=== PATIENT | female | born 1935 | race Caucasian/White ===

== ENCOUNTER → 2016-06-21 | Outpatient (CLI) | payer MEDICARE | END | disposition home or self-care (01) | LOC: PCVCCLINIC 13:58 | PROVIDERS: ATTEND Internal Medicine Cardiovascular Disease | DX: I48.91 Unspecified atrial fibrillation (principal); E78.5 Hyperlipidemia, unspecified; I10 Essential (primary) hypertension; Z95.0 Presence of cardiac pacemaker | CPT/HCPCS: 80061; 93005; G0463 ==

== ENCOUNTER → 2016-06-23 | Outpatient (CLI) | payer MEDICARE | END | disposition home or self-care (01) | LOC: PCVCCLINIC 13:00 | PROVIDERS: ATTEND Internal Medicine Cardiovascular Disease | DX: I49.5 Sick sinus syndrome (principal) | CPT/HCPCS: 93280 ==

== ENCOUNTER → 2017-01-05 | Outpatient (CLI) | payer MEDICARE ==
--- NOTE | 2017-01-05 14:00 | PCVCIMAG ---
APPROVED REPORT Study performed: 01/05/2017 12:49:35 EXAM: Comprehensive 2D, Doppler, and color-flow Echocardiogram Patient Location: Echo lab Status: routine BSA: 1.85 HR: 73 bpmBP: 112/80 mmHg Rhythm: NSR Other Information Study Quality: Adequate Risk Factors: Cardiac Risk Factors: HTN, Hyperlipidemia, Afib, Pacemaker Indications Atrial Fibrillation Hypertension/HDD Hyperlipidemia. Pacemaker 2D Dimensions IVSd: 9.85 (7-11mm)LVOT Diam: 20.48 (18-24mm) LVDd: 39.05 mm LVPWs: 29.49 mm PWd: 9.03 (7-11mm)Ascending Ao: 30.07 (22-36mm) LVDs: 18.34 (25-40mm) Left Atrium: 41.82 (27-40mm) LV Single Plane 4CH: 63.48 % LV Single Plane 2CH: 51.23 %Brito's LVEF: 57.35 % Biplane EF: 58.6 % Volumes Left Atrial Volume (Systole) Single Plane 4CH: 43.10 mLSingle Plane 2CH: 28.99 mL LA ESV Index: 22.00 mL/m2 Aortic Valve AoV Peak Bry.: 1.59 m/s AO Peak Gr.: 10.14 mmHgLVOT Max P.65 mmHg LVOT Max V: 1.08 m/s EVE Vmax: 2.23 cm2 Mitral Valve E/A Ratio: 0.9 MV Decel. Time: 337.54 ms MV E Max Bry.: 0.66 m/s MV A Bry.: 0.77 m/s IVRT: 96.89 ms TDI E/Lateral E': 9.43E/Medial E': 8.25 Medial E' Bry.: 0.08 m/s Lateral E' Bry.: 0.07 m/s Pulmonary Valve PV Peak Gr.: 2.32 mmHg Pulmonary Vein P Vein S: 0.54 m/sP Vein A: 0.28 m/s P Vein D: 0.44 m/sP Vein A Dur.: 65.7 msec P Vein S/D Ratio: 1.23 Tricuspid Valve TR Peak Bry.: 2.77 m/s TR Peak Gr.: 30.77 mmHg Left Ventricle The left ventricle is normal size. There is normal LV segmental wall motion. There is normal left ventricular wall thickness. Left ventricular systolic function is normal. The left ventricular ejection fraction is within the normal range. LVEF is 60-65%. The left ventricular diastolic function is normal. Right Ventricle Pacemaker wire noted. The right ventricular systolic function is normal. Atria The left atrium size is normal. Pacemaker lead is present in the right atrium. Aortic Valve The aortic valve is normal in structure. No aortic regurgitation is present. There is no aortic valvular stenosis. Mitral Valve The mitral valve is normal in structure. Mild mitral annular calcification,. There is no mitral valve regurgitation noted. No evidence of mitral valve stenosis. Tricuspid Valve The tricuspid valve is normal in structure. Trace tricuspid regurgitation. Pulmonary artery pressure is 38mmhg. Pulmonic Valve The pulmonary valve is normal in structure. There is no pulmonic valvular regurgitation. Great Vessels The aortic root is normal in size. IVC is normal in size and collapses with >50% inspiration Pericardium There is no pericardial effusion. <Conclusion> The left ventricle is normal size. There is normal left ventricular wall thickness. LVEF is 60-65%. The left ventricular diastolic function is normal. Pacemaker wire noted. The right ventricular systolic function is normal. The left atrium size is normal. Pacemaker lead is present in the right atrium. The aortic valve is normal in structure. There is no mitral valve regurgitation noted. Trace tricuspid regurgitation. Pulmonary artery pressure is 38mmhg. There is no pericardial effusion.
== END | disposition home or self-care (01) ==
LOC: PCVCIMAG 12:16
PROVIDERS: ATTEND Internal Medicine Cardiovascular Disease
DX: I07.1 Rheumatic tricuspid insufficiency (principal); I48.91 Unspecified atrial fibrillation; I49.5 Sick sinus syndrome; E78.5 Hyperlipidemia, unspecified; I10 Essential (primary) hypertension; M81.0 Age-related osteoporosis without current pathological fracture; Z95.0 Presence of cardiac pacemaker; Z90.12 Acquired absence of left breast and nipple; Z79.899 Other long term (current) drug therapy; Z87.891 Personal history of nicotine dependence; Z88.0 Allergy status to penicillin; Z88.5 Allergy status to narcotic agent
CPT/HCPCS: 80061; 93280; 93306; G0463

== ENCOUNTER → 2017-07-26 | Outpatient (CLI) | payer MEDICARE | END | disposition home or self-care (01) | LOC: PCVCCLINIC 10:59 | DX: I48.91 Unspecified atrial fibrillation (principal); I49.5 Sick sinus syndrome; I10 Essential (primary) hypertension; E78.00 Pure hypercholesterolemia, unspecified; R19.7 Diarrhea, unspecified; Z90.49 Acquired absence of other specified parts of digestive tract; Z95.0 Presence of cardiac pacemaker; Z87.891 Personal history of nicotine dependence; Z79.899 Other long term (current) drug therapy | CPT/HCPCS: 80061; 93280; G0463 ==

== ENCOUNTER → 2017-10-25 | Outpatient (CLI) | payer MEDICARE | END | disposition home or self-care (01) | LOC: PCVCCLINIC 11:04 | PROVIDERS: ATTEND Internal Medicine Cardiovascular Disease | DX: I48.91 Unspecified atrial fibrillation (principal); I10 Essential (primary) hypertension; E78.5 Hyperlipidemia, unspecified; M81.0 Age-related osteoporosis without current pathological fracture; Z95.0 Presence of cardiac pacemaker; Z87.891 Personal history of nicotine dependence; Z79.899 Other long term (current) drug therapy | CPT/HCPCS: 80061; 93280; G0463 ==

== ENCOUNTER → 2018-02-07 | Outpatient (CLI) | payer MEDICARE | END | disposition home or self-care (01) | LOC: PCVCCLINIC 13:05 | PROVIDERS: ATTEND Internal Medicine Cardiovascular Disease | DX: I48.91 Unspecified atrial fibrillation (principal); I49.5 Sick sinus syndrome; E78.00 Pure hypercholesterolemia, unspecified; I10 Essential (primary) hypertension; Z95.0 Presence of cardiac pacemaker; Z87.891 Personal history of nicotine dependence; Z79.899 Other long term (current) drug therapy | CPT/HCPCS: 93280; G0463 ==

== ENCOUNTER → 2018-08-22 | Outpatient (CLI) | payer MEDICARE ==
--- NOTE | 2018-08-22 17:07 | PCVCIMAG ---
APPROVED REPORT Study performed: 08/22/2018 13:06:03 EXAM: Comprehensive 2D, Doppler, and color-flow Echocardiogram Patient Location: Echo lab Room #: 2Status: routine BSA: 1.89 HR: 61 bpmBP: 118/62 mmHg Rhythm: NSR Other Information Study Quality: Fair Indications Atrial Fibrillation Pacemaker Hypertension/HDD Hx SSS 2D Dimensions IVSd: 8.49 (7-11mm)LVOT Diam: 19.65 (18-24mm) LVDd: 52.74 mm PWd: 10.13 (7-11mm)Ascending Ao: 32.72 (22-36mm) LVDs: 32.66 (25-40mm) Left Atrium: 41.86 (27-40mm) Aortic Root: 22.34 mm LV Single Plane 4CH: 55.87 % LV Single Plane 2CH: 63.37 % Biplane EF: 59.2 % Volumes Left Atrial Volume (Systole) Single Plane 4CH: 57.89 mLSingle Plane 2CH: 39.93 mL Biplane LA Volume: 50.00 mLLA ESV Index: 27.00 mL/m2 Aortic Valve AoV Peak Bry.: 1.42 m/s AO Peak Gr.: 8.09 mmHgLVOT Max P.34 mmHg LVOT Max V: 0.89 m/s EVE Vmax: 1.89 cm2 Mitral Valve E/A Ratio: 1.3 MV Decel. Time: 203.45 ms MV E Max Bry.: 0.74 m/s MV A Bry.: 0.59 m/s TDI E/Lateral E': 12.33E/Medial E': 8.22 Medial E' Bry.: 0.09 m/s Lateral E' Bry.: 0.06 m/s Pulmonary Valve PV Peak Bry.: 0.91 m/sPV Peak Gr.: 3.29 mmHg Pulmonary Vein P Vein S: 0.56 m/sP Vein A: 0.19 m/s P Vein D: 0.48 m/sP Vein A Dur.: 79.6 msec P Vein S/D Ratio: 1.17 Tricuspid Valve TR Peak Bry.: 2.44 m/s TR Peak Gr.: 23.77 mmHg TV Vmax: 0.54 m/sPA Pressure: 34.00 mmHg Left Ventricle The left ventricle is normal size. There is normal LV segmental wall motion. There is normal left ventricular wall thickness. Left ventricular systolic function is normal. The left ventricular ejection fraction is within the normal range. LVEF is 55-60%. The left ventricular diastolic function is normal. Right Ventricle The right ventricle is normal size. The right ventricular systolic function is normal. Atria The left atrium size is normal. Pacemaker lead is present in the right atrium. Aortic Valve Aortic valve is trileaflet. Aortic valve leaflets are minimally thickened. No aortic regurgitation is present. There is no aortic valvular stenosis. Mitral Valve The mitral valve is normal in structure. Trace mitral regurgitation. No evidence of mitral valve stenosis. Tricuspid Valve The tricuspid valve is normal in structure. Mild tricuspid regurgitation with a PA pressure of 34 mmHg. Mild pulmonary hypertension. Pulmonic Valve The pulmonary valve is normal in structure. There is no pulmonic valvular regurgitation. Great Vessels The aortic root is normal in size. The ascending aorta is normal in size. Aortic arch is normal in caliber. IVC is normal in size and collapses >50% with inspiration. Pericardium There is no pericardial effusion. There is no pleural effusion. <Conclusion> The left ventricle is normal size. LVEF is 55-60%. The left ventricular diastolic function is normal. The right ventricle is normal size. The left atrium size is normal. Pacemaker lead is present in the right atrium. Aortic valve is trileaflet. Aortic valve leaflets are minimally thickened. There is no aortic valvular stenosis. Trace mitral regurgitation. Mild tricuspid regurgitation with a PA pressure of 34 mmHg. Mild pulmonary hypertension. The aortic root is normal in size. There is no pericardial effusion.
== END | disposition home or self-care (01) ==
LOC: PCVCIMAG 13:00
PROVIDERS: ATTEND Internal Medicine Cardiovascular Disease
DX: I07.1 Rheumatic tricuspid insufficiency (principal); I27.20 Pulmonary hypertension, unspecified; I48.91 Unspecified atrial fibrillation; I10 Essential (primary) hypertension; E78.5 Hyperlipidemia, unspecified; I49.5 Sick sinus syndrome; M81.0 Age-related osteoporosis without current pathological fracture; Z95.0 Presence of cardiac pacemaker; Z87.891 Personal history of nicotine dependence
CPT/HCPCS: 36415; 80061; 93005; 93280; 93306; G0463